=== PATIENT | female | born 1940 | race Caucasian/White ===

== ENCOUNTER 2021-10-07 10:02 | Emergency (ER) | payer MEDICARE, SELFPAY ==
--- NOTE | 2021-10-07 10:10 | ED.CHESTPAIN ---
HPI - Chest Pain General Chief Complaint: Upper Respiratory Infection Stated Complaint: cough, burning chest pain Time Seen by Provider: 10/07/21 10:10 Source: patient Mode of arrival: ambulatory Limitations: no limitations History of Present Illness HPI narrative: Saniya Plummer is a 81 yo female with a PMH of Related Data Home Medications Medication Instructions Recorded Confirmed amlodipine 5 mg PO DAILY 10/07/21 10/07/21 atorvastatin 20 mg PO DAILY 10/07/21 10/07/21 losartan 100 mg PO DAILY 10/07/21 10/07/21 omeprazole 20 mg PO DAILY 10/07/21 10/07/21 Allergies Allergy/AdvReac Type Severity Reaction Status Date / Time clarithromycin Allergy Mild NAUSEA Unverified 09/15/08 11:41 Penicillins Allergy Mild Rash Unverified 09/15/08 11:41 Discharge Plan Discharge Prescriptions: No Action atorvastatin 20 mg tablet 20 mg PO DAILY RF: 0 amlodipine 5 mg tablet 5 mg PO DAILY RF: 0 omeprazole 20 mg capsule,delayed release(DR/EC) 20 mg PO DAILY RF: 0 losartan 100 mg tablet 100 mg PO DAILY RF: 0
[2021-10-07 10:13] VITALS: BP 138/75; PULSE 80; RESP 18; TEMP 36.2; O2SAT 100
--- NOTE | 2021-10-07 10:19 | ED.URI ---
HPI - URI/Sore Throat General Chief Complaint: Upper Respiratory Infection Stated Complaint: cough, burning chest pain Time Seen by Provider: 10/07/21 10:10 Source: patient Mode of arrival: ambulatory Limitations: no limitations History of Present Illness HPI Narrative: Saniya Plummer is a 81 yo female with PMH of HTN, high cholesterol, GERD, who [facility] with complaints of burning chest pain and cough. Son-in-law had strep and so she wanted to be tested states she has had recent days of symptoms of sinus fullness and mild sore throat for 2 days Related Data Home Medications Medication Instructions Recorded Confirmed amlodipine 5 mg PO DAILY 10/07/21 10/07/21 atorvastatin 20 mg PO DAILY 10/07/21 10/07/21 losartan 100 mg PO DAILY 10/07/21 10/07/21 omeprazole 20 mg PO DAILY 10/07/21 10/07/21 Allergies Allergy/AdvReac Type Severity Reaction Status Date / Time clarithromycin Allergy Mild NAUSEA Verified 10/07/21 10:24 Penicillins Allergy Mild Rash Verified 10/07/21 10:24 oxycodone [From OxyContin] AdvReac Intermediate Nausea and Verified 10/07/21 10:25 Vomiting Review of Systems Review of Systems: CONSTITUTIONAL: Denies fever, chills, sweats. Subjective fever EYES: Denies visual changes, redness, discharge. ENT: Denies rhinorrhea, has congestion, has sore throat, otalgia. CARDIOVASCULAR: Denies chest pain, palpitations, edema. RESPIRATORY: Denies dyspnea, wheezing, cough GASTROINTESTINAL: Denies abdominal pain, nausea, vomiting, diarrhea. GENITOURINARY: Denies dysuria, hematuria, abnormal discharge SKIN: Denies rash or itching. NEUROLOGIC: Denies numbness, or focal weakness. PSYCHIATRIC: Denies anxiety or depression. PMFSH Past Medical History Medical History GERD (gastroesophageal reflux disease) High cholesterol HTN (hypertension) Social History Social History (Updated 10/07/21 @ 10:47 by Shania Montes CNP) Smoking status: Former smoker Alcohol intake: current Comments At time of signature, I agree with nursing past medical, surgical, social and family history. There is no relevant family history pertinent to the presenting complaint. Exam Narrative: GENERAL: This is a well-nourished, well-developed patient, in mild distress. HEAD: normocephalic, atraumatic. EYES: PERRL. Sclera clear/white. Vision is grossly intact. EARS: External ears normal, auditory canals clear and without drainage, TMs normal without perforation. Hearing grossly intact. NOSE: External nose normal without nasal discharge, nares without redness, no rhinorrhea. THROAT: Mucous membranes moist, posterior pharynx mild erythema, no exudate NECK: Neck supple, non-tender CARDIOVASCULAR: Regular rate and rhythm without murmurs, gallops, or rubs. RESPIRATORY: Clear to auscultation. Breath sounds equal bilaterally. No wheezes, rales, or rhonchi. GASTROINTESTINAL: Abdomen soft, non-tender, SKIN: warm, intact with no suspicious lesions or rash, good texture and turgor. NEURO: awake, alert, and oriented to person, place and time. There were no obvious focal neurologic abnormalities. Steady gait EXTREMITIES: Normal range of motion. BACK: Nontender without deformity Course Course Emergency Course: Patient here with mild sore throat and some sinus congestion subjective fever very mild cough Strep negative Flu negative Patient wants an antibiotic, will give Zithromax Level of Care: Express Care Visit Vital Signs Vital signs: Vital Signs Temperature 97.1 F L 10/07/21 10:13 Pulse Rate 80 10/07/21 10:13 Respiratory Rate 18 10/07/21 10:13 Blood Pressure 138/75 10/07/21 10:13 Pulse Oximetry 100 10/07/21 10:13 Temperature 97.1 F L 10/07/21 10:13 Pulse Rate 80 10/07/21 10:13 Respiratory Rate 18 10/07/21 10:13 Blood Pressure 138/75 10/07/21 10:13 Pulse Oximetry 100 10/07/21 10:13 MDM - URI/Sore Throat Differential Diagnosis
== END 2021-10-07 10:59 | disposition home or self-care (01) ==
PROVIDERS: Emergency Provider Nurse Practitioner; PCP Family Medicine
DX: B34.9 Viral infection, unspecified (principal); J02.9 Acute pharyngitis, unspecified; I10 Essential (primary) hypertension; Z87.891 Personal history of nicotine dependence
CPT/HCPCS: 87081; 87804; 87880; 99213; G0463

== ENCOUNTER 2023-12-30 15:20 | Emergency (ER) | payer MEDICARE, SELFPAY ==
[2023-12-30 15:34] VITALS: BP 142/54; PULSE 72; RESP 18; TEMP 36.6; O2SAT 98
--- NOTE | 2023-12-30 16:03 | ED.EPISTAXIS ---
HPI - Epistaxis General Chief complaint: Epistaxis Stated complaint: nose bleeds 2 months Time Seen by Provider: 12/30/23 15:50 Source: patient, RN notes reviewed and old records reviewed Mode of arrival: ambulatory Limitations: no limitations History of Present Illness HPI Narrative: patient presents with complaints of intermittent bleeding from the right nostril for approximately 2 months. She reports over the past week the bleeding has become more frequent and she has a raw sensation to the right nostril up into the right side of the forehead. She denies any fever, chills, sweats. She does follow with ENT regularly, next appointment January 28, 2024. She denies any injury or trauma. She voices no other complaints at this time. Related Data Home Medications Medication Instructions Recorded Confirmed amlodipine 5 mg tablet 5 mg PO DAILY 10/07/21 10/07/21 atorvastatin 20 mg tablet 20 mg PO DAILY 10/07/21 10/07/21 losartan 100 mg tablet 100 mg PO DAILY 10/07/21 10/07/21 omeprazole 20 mg capsule,delayed 20 mg PO DAILY 10/07/21 10/07/21 release famotidine 20 mg tablet mg 12/30/23 Allergies Allergy/AdvReac Type Severity Reaction Status Date / Time clarithromycin Allergy Mild NAUSEA Verified 12/30/23 15:54 Penicillins Allergy Mild Rash Verified 12/30/23 15:54 oxycodone [From OxyContin] AdvReac Intermediate Nausea and Verified 12/30/23 15:54 Vomiting Review of Systems Review of Systems: All systems reviewed & are unremarkable except as noted in HPI and below Constitutional: Constitutional: Reports no additional constitutional complaints ENT: Reports system reviewed and no additional complaints, except as documented, Reports epistaxis and Reports nasal discharge Cardiovascular: Cardiovascular: Reports no additional cardiovascular complaints Respiratory: Respiratory: Reports no additional respiratory complaints Gastrointestinal: Gastrointestinal: Reports no additional gastrointestinal complaints Allergic/Immunologic: Allergic/Immunologic: Reports as per HPI [facility] Past Medical History Medical History GERD (gastroesophageal reflux disease) High cholesterol HTN (hypertension) Family History Family History Father Hypertension Carcinoma of colon Malignant neoplasm of prostate Family history of coronary artery disease Mother Hypertension Family history of diabetes mellitus in first degree relative Family history of coronary artery disease Grandparent Cerebrovascular accident Social History Social History Smoking status: Former smoker Alcohol intake: current Exam Const: General: cooperative, no acute distress, alert and awake Orientation/consciousness: oriented to person, oriented to place and oriented to time HENMT: Head: normal to inspection Ears: TM's normal bilaterally Face/Nose/Sinus: Abnormal mucous membranes and turbinates present boggy on the right and erythematous on the right and Abnormal nasal septum present other (right sided swelling) Face and sinus: sinus tenderness frontal Mouth: Yes moist mucous membranes Throat: posterior oropharynx abnormal erythema and postnasal drainage Neck: Lymphatic: no lymphadenopathy noted Resp: Effort & Inspection: normal respiratory effort and able to speak in complete sentences Auscultation: clear to auscultation bilaterally, no crackles, no rales, no rhonchi and no wheezes Cardio: Palpation: normal PMI Rate: regular rate Rhythm: regular rhythm Heart sounds: S1 normal heart sound present and S2 normal heart sound present Neuro: General: oriented to person, oriented to place and oriented to time Cranial nerves: Yes CN's II-XII intact bilaterally Psych: Appearance: grossly normal Thought process: Normal thought process present Insight: Good insight present (Psych) Judgeme
== END 2023-12-30 16:13 | disposition home or self-care (01) ==
PROVIDERS: Emergency Provider Nurse Practitioner Family
DX: J01.10 Acute frontal sinusitis, unspecified (principal); Z87.891 Personal history of nicotine dependence; K21.9 Gastro-esophageal reflux disease without esophagitis; E78.00 Pure hypercholesterolemia, unspecified; I10 Essential (primary) hypertension
CPT/HCPCS: 99213; G0463

== ENCOUNTER → 2024-03-31 14:05 | Emergency (ER) | payer MEDICARE, SELFPAY | END | disposition left against medical advice (07) | LOC: ANHED 04-01 05:54 | DX: Z53.21 Procedure and treatment not carried out due to patient leaving prior to being seen by health care provider (principal) | CPT/HCPCS: 99199 ==

== ENCOUNTER 2024-03-31 14:17 | Emergency (ER) | payer MEDICARE, SELFPAY ==
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
--- NOTE | ~2024-03-31 | CT_ITS ---
EXAMINATION: CT abdomen pelvis w con DATE: 03/31/2024 19:36 INDICATION: mass/cyst? in upper abdomen TECHNIQUE: Computed tomography (CT) of the abdomen and pelvis was performed with 100 mL Omnipaque-350 intravenous contrast. Automated exposure control and iterative reconstruction technique were employe d. The dose-length product was 955.46 mGy-cm. COMPARISON: CT thoracic lumbar spine same date. FINDINGS: Lower thorax: Coronary artery calcifications. Liver: Multiple simple cysts measuring up to 12.6 cm in the left lobe. Multiple additional smaller parks bcentimeter hypodensities that are too small to characterize but also likely represent cysts or heman giomas. Biliary/Gallbladder: Gallbladder is normal. No bile duct dilation. Pancreas: No mass or duct dilation. Spleen: Normal. Adrenals:No mass. Kidneys: No suspicious mass, obstructing stone, or hydronephrosis. GI tract: No small or large bowel dilation. Appendix not confidently visualized. Diverticulosis witho ut diverticulitis. Mesentery/Peritoneum: No ascites, mass, or free air. Retroperitoneum: No mass. Pelvis: Normal urinary bladder and uterus. Atrophic ovaries.. Soft Tissues: Soft tissues and body wall unremarkable. Bones: No acute osseous finding. IMPRESSION: The cystic lesion detected in the prior CT of the thoracic and lumbar spine corresponds to a 12.6 cm simple liver cyst. No acute abdominopelvic process detected Reviewed, dictated and finalized at location K. IMPRESSION: The cystic lesion detected in the prior CT of the thoracic and lumbar spine cor responds to a 12.6 cm simple liver cyst. No acute abdominopelvic process detected
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
[2024-03-31 14:28] VITALS: BP 146/60; PULSE 73; RESP 18; TEMP 36.7; O2SAT 98
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
[2024-03-31 19:04] LABS: Basophils Absolute Auto 0.1 K/mm3 (0.0-0.1); Basophils Percent Auto 0.5 % (0.2-1.2); Eosinophils Absolute Auto 0.3 K/mm3 (0-0.3); Eosinophils Percent Auto 2.6 % (0-4.4); Hematocrit 40.2 % (37.0-47.0); Immature Granulocyte Absolute 0.04 K/mm3 (0.00-0.031); Immature Granulocyte Percent A 0.4 % (0-0.5); Lymphocytes Absolute Auto 2.99 K/mm3 (0.9-3.2); Lymphocytes Percent Auto 30.3 % (18.3-44.2); Mean Corpuscular HGB Conc 32.3 g/dl (32-36); Mean Corpuscular Hemoglobin 30.9 pg (26-34); Mean Corpuscular Volume 95.5 fl (80-100); Mean Platelet Volume 9.4 fl (7.4-10.4); Monocytes Absolute Auto 0.8 K/mm3 (0.1-0.6); Neutrophils Absolute Auto 5.7 K/mm3 (1.3-6.7); Neutrophils Percent Auto 58.2 % (45.5-73.1); Platelet Count Result 336 k/mm3 (150-375); Red Blood Count 4.21 M/mm3 (4.2-5.4); Red Cell Distribution Width 13.1 % (11.5-14.5); White Blood Count 9.9 K/mm3 (4.5-10.0)
[2024-03-31 19:18] LABS: Alanine Aminotransferase 28 U/L (6-35); Albumin Level 4.2 g/dL (3.5-5.1); Alkaline Phosphatase 111 U/L (38-126); Anion Gap 8 mmol/L (4-12); Aspartate Amino Transferase 40 U/L (14-36); Bilirubin,Total 0.4 mg/dL (0.2-1.3); Blood Urea Nitrogen 16 mg/dL (7-17); Carbon Dioxide 28 mmol/L (22-30); Chloride 104 mmol/L (98-107); Estimated CRCL calculation 50 ml/min; Estimated Glomerular Filt Rate 60; Glucose 90 mg/dL (65-110); Potassium 3.8 mmol/L (3.4-5.0); Sodium 140 mmol/L (137-145)
[2024-03-31 20:10] VITALS: BP 150/70; PULSE 73; RESP 18; O2SAT 98
[2024-03-31 20:34] VITALS: BP 152/73; PULSE 82; RESP 18; O2SAT 97
== END 2024-03-31 20:35 | disposition home or self-care (01) ==
PROVIDERS: Emergency Provider Physician Assistant
DX: S16.1XXA Strain of muscle, fascia and tendon at neck level, initial encounter (principal); K76.89 Other specified diseases of liver; I10 Essential (primary) hypertension; E78.00 Pure hypercholesterolemia, unspecified; K21.9 Gastro-esophageal reflux disease without esophagitis; Z96.611 Presence of right artificial shoulder joint; Z87.891 Personal history of nicotine dependence; V43.62XA Car passenger injured in collision with other type car in traffic accident, initial encounter
CPT/HCPCS: 36415; 72125; 72128; 72131; 73030; 74177; 80053; 85025; 99284; Q9967

== ENCOUNTER 2024-12-13 07:15 | Emergency (ER) | payer MEDICARE, SELFPAY ==
[2024-12-13] VITALS (20 sets, daily range): BP systolic 82–152; BP diastolic 34–108; PULSE 64–138; RESP 10–34; TEMP 36.4; O2SAT 95–100
--- NOTE | ~2024-12-13 | XR_ITS ---
Portable chest x-ray Comparison: 01/25/2014 Clinical History: Palpitations Findings: Lungs are clear, without focal consolidation or pleural effusion. Cardiomediastinal silho uette is stable. 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 Impression: Clear lungs. Degenerative changes and loose body at the left shoulder, as detailed above. Reviewed, dictated and finalized at location M. Impression: Clear lungs. Degenerative changes and loose body at the left shoulder, as detailed above.
--- NOTE | 2024-12-13 07:17 | ECG_ITS ---
Test Date: 2024-12-13 07:23:48 Measurements Intervals [place] Rate: 118 P: 0 KS: 0 QRS: 20 QRSD: 87 T: 28 QT: 239 QTc: 335 Interpretive Statements ATRIAL FIBRILLATION WITH RAPID VENTRICULAR RESPONSE NONSPECIFIC ST & T-WAVE ABNORMALITY ABNORMAL ECG Electronically Signed On 12-13-2024 11:37:06 CDT by Anjel Esteves M.D.
--- OUTSIDE RECORDS SUMMARY | 2024-12-13 07:17 | XMS_ITS | Clinical Summary ---
Author Organization [facility] Address [address] [place] [id number] Care Team Providers Care Choral Director Name Role Phone Sesar Toth MD Primary Care Provider [phone] Social History Tobacco Use Types Packs/Day Years Used Date Smoking Tobacco: Never Assessed Comments Unknown Sex and Gender Information Value Date Recorded Sex Assigned at Not on file Legal Sex Female 2:56 PM CDT Gender Identity Not on file Sexual Orientation Not on file Plan of Treatment Health Maintenance Due Date Last Done Comments Annual Medicare Wellness Visit 09/28/2007 Dexa Scan (General) 09/28/2007 RSV Immunization or 60+ Years (1 - 1-dose 75+ series) 2017 COVID-19 Vaccine (2023-2 5 season) 2024 DTaP, Tdap and Td Vaccines ( 4 - Td or Tdap) 01/24/2030 01/25/2020, 09/19/2016, 09/19/2016 Pneumococcal Vaccine: 50+ Years Completed 01/30/2018, 01/21/2018, 12/12/2015 Zoster Vaccines Completed 09/17/2018, 06/24/2018 Meningococcal B Vaccine Aged Out No l onger eligible based on patient's age to complete this topic Meningococcal Vaccine Aged Out No wilmer nina eligible based on patient's age to complete this topic RSV Immunizations Under 20 Months Aged Out No longer eligible b ased on patient's age to complete this topic Insurance MED REPLACE [facility] MEDICARE Care Teams Choral Director Relationship Specialty Start Date End Date Sesar Toth MD [address] [place] [id number] PCP - General FAMILY PRACTICE 09/19/21
--- OUTSIDE RECORDS SUMMARY | 2024-12-13 07:17 | XMS_ITS | Continuity of Care Document ---
Author Organization [facility] Address [address] [place] [address] Phone Care Team Providers Care Vp Medical Name Role Phone Jd Laguerre DO Unavailable Unavailable Advance Directives Directive Yes / No Effective Date File Name No Information Encounters Encounter Description Practice Location Reason(s) For Visit Diagnoses Date Provider Providers Copied on Encounter [facility], [address], [place], [place], [id number], [place] tel:[phone] [facility] ([facility]) No Information [facility]. [address] [place], [address], [place]. tel: [phone] Family History Family Member Type Diagnosis Age At Onset No Information Payers Payer name Insurance type Covered alliance party ID Authoriza tion(s) No Information Social History Type Description Quantity Date Captured Comments Sex Female Smoking Status No Information Chief Complaint And Reason For Visit No Information Reason For Referral Reason For Referral No Information History Of Present Illness Encounter Date Complaint History Of Prese nt Illness No Information Functional Status Date Functional Assessmen t No Information Instructions Date Instruction Additional Infor mation No Information Assessments Type Assessment Date No Information Patient Care Teams Name Effective Dates (start - stop) Status Members No Information
--- OUTSIDE RECORDS SUMMARY | 2024-12-13 07:17 | XMS_ITS | Clinical Summary ---
Author Organization [address] Address [address] [place] [phone] Care Team Providers Care Electrical Engineering Draftsperson Name Role Phone Sesar Toth MD Primary Care Provider [phone] Allergies Active Allergy Reactions Criticality Noted Date Comments Penicillins Rash,Vomiting Medium 10/24/2015 Medications amLODIPine (NORVASC) 5 mg tablet 09/14/19 25 Active aspirin 81 mg enteric coated tablet Take 1 tablet (81 mg total) by mouth daily Active atorvastatin (LIPITOR) 40 mg tablet 09/14/19 25 Active ezetimibe (ZETIA) 10 mg tablet 09/14/19 25 Active losartan (COZAAR) 100 mg tablet 09/14/19 25 Active omeprazole (PriLOSEC) 40 mg capsule Take 1 capsule (40 mg total) by mouth daily Active simvastatin (ZOCOR) 40 mg tablet Take 1 tablet (40 mg total) by mouth daily Active ofloxacin (OCUFLOX) 0.3 % ophthalmic solutionIndication s:Bacterial Conjunctivitis Administer 2 drops into the right eye every 4 (four) hours for 7 days 5 mL 12/06/19 25 025 Active Problems No known active problems Encounters Date Type Department Care Team Description 12/05/2024 9:45 AM CDT Office Visit [facility] at [address] [address] Karley Lackey NP Bacterial conjunctivitis of right eye (Primary Dx) from Last 3 Months Immunizations Immunization Administration Dates Next Due Influenza, Trivalent, High D ose, Split, Preservative Free, Intramuscular 01/30/2018,01/26/2015 Influenza, Trivalent, IM (MDV) 02/10/2011 Pneumococcal Conjugate PCV 13 01/30/2018 Tdap 09/19/2016 Social History Tobacco Use Types Packs/Day Years Used Date Smoking Tobacco: Never Assessed Comments Unknown Sex and Gender Information Value Date Recorded Sex Assigned at Not on file 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 Gender Identity Not on file Sexual Orientation Not on file Obstetrics History Last Filed Vital Signs Vital Sign Reading Time Taken Comments Blood Pressure 141/74 12/05/2024 8:54 AM CDT Pulse 67 12/05/2024 8:54 AM CDT Temperature 36.6 C (97.9 F) 12/05/2024 8:54 AM CDT Respiratory Rate 16 12/05/2024 8:54 AM CDT Oxygen Saturation 100% 12/05/2024 8:54 AM CDT Inhaled Oxygen Concentration - - Weight 92.1 kg (203 lb) 12/05/2024 8:54 AM CDT Height - - Body Mass Index - - Plan of Treatment Health Maintenance Due Date Last Done Comments Depression Screening 1942 Fall Risk Assessment 1942 Osteoporosis Screening-Bone Density Scan 1942 Hepatitis B Screening 1960 Zoster Vaccine (1 of 2) 1992 Well Visit 65+ 09/28/2007 Pneumococcal vaccine 65+ (2 of 2 - PPSV23) 01/30/2019 01/30/2018 Influenza Vaccine (#1) 2025 8, 01/26/2015, 02/10/2011 DTaP/Tdap/Td Vaccine (2 - Td or Tdap) 09/19/2026 Insurance [employer] MEDICARE Care Teams Electrical Engineering Draftsperson Relationship Specialty Start Date End Date Sesar Toth MD [address] [place] [address] PCP - General Family Medicine 12/05/24
--- OUTSIDE RECORDS SUMMARY | 2024-12-13 07:17 | XMS_ITS | Referral Summary ---
Author Organization [address] Address [address] [place] [address] Care Team Providers Care Press Set Up Name Role Phone Sesar Toth MD Primary Care Provider [phone] Encounters Date Type Department Care Team Description 12/05/2024 9:45 AM CDT Office Visit [facility] at [address] [address] Karley Lackey, JENNI Bacterial conjunctivitis of right eye (Primary Dx) from Last 3 Months Allergies Active Allergy Reactions Criticality Noted Date [...] 025 Active Problems No known active problems Immunizations Immunization Administration Dates Next Due Influenza, Trivalent, High D ose, Split, Preservative Free, Intramuscular 01/30/2018,01/26/2015 Influenza, Trivalent, IM (MDV) 02/10/2011 Pneumococcal Conjugate PCV 13 01/30/2018 Tdap 09/19/2016 Social History Tobacco Use Types Packs/Day Years Used Date Smoking Tobacco: Never Assessed Comments Unknown Sex and Gender Information Value Date Recorded Sex Assigned at Not on file 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
--- OUTSIDE RECORDS SUMMARY | 2024-12-13 07:17 | XMS_ITS | Clinical Summary ---
Author Organization [facility] Address [address] [place] [address] Phone Care Team Providers Care Director Of Critical Care Name Role Phone Sesar Toth MD Primary Care Provider [phone] Allergies Active Allergy Reactions Criticality Noted Date Comments Penicillins Rash,Vomiting 10/24/2015 Medications polyethylene glycol (MIRALAX) Powder Mix the entire bottle with 64 oz of a clear liquid. Use as directed by the office for colonoscopy prep. 255 g 0 6 Active simvastatin (ZOCOR) 40 MG Tablet Take 40 mg by mouth daily. Active omeprazole (PRILOSEC) 40 MG CAPSULE DELAYED RELEASE Take 40 mg by mouth daily. Active aspirin EC 81 MG Tablet Delayed Response Take 81 mg by mouth daily. Active Calcium Citrate-Vitamin D (CALCIUM CITRATE + D PO) Take 2 Tabs by mouth 2 times daily. Active Cyanocobalamin (VITAMIN B 12 PO) Take 1,000 mcg by mouth daily. Active Multiple Vitamin (MULTI-VITAMIN) Tablet Take 1 Tab by mouth daily. Active Family History Medical History Relation Name Comments Colon Cancer Father 70's Congestive Heart Failure Father Heart Attack Father Melanoma Father Osteoarthritis Father Pacemaker Father Squamous Cell Carcinoma Father Congestive Heart Failure Mother Diabetes Mother Heart Attack Mother Osteoarthritis Mother Pacemaker Mother Relation Name Status Comments Father Mother Social History Tobacco Use Types Packs/Day Years Used Date Smoking Tobacco: Former Cigarettes Q uit: 10/24/1979 Smokeless Tobacco: Never Alcohol Use Standard Drinks/Week Comments Yes 0 (1 standard drink = 0.6 oz pur e alcohol) glass of wine nightly Comments Unknown Sex and Gender Information Value Date Recorded Sex Assigned at Not on file Legal Sex Female 10:38 PM CDT Gender Identity Not on file Sexual Orientation Not on file 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 Not on file Not on file Not on file Last Filed Vital Signs Vital Sign Reading Time Taken Comments Blood Pressure 127/53 10/26/2015 10:23 AM CDT Pulse - - Temperature 36 C (96.8 F) 10/26/2015 10:23 AM CDT Respiratory Rate 19 10/26/2015 10:23 AM CDT Oxygen Saturation 96% 10/26/2015 10:23 AM CDT Inhaled Oxygen Concentration - - Weight 90.7 kg (200 lb) 10/26/2015 9:00 AM CDT Height 172.7 cm (5' 8) 10/26/2015 9:00 AM CDT Body Mass Index 30.41 10/26/2015 9:00 AM CDT Plan of Treatment Health Maintenance Due Date Last Done Comments DEXA Bone Density 1940 Hepatitis C Virus (HCV) Screening 1940 TdaP Immunization 1942 Pneumococcal Immunization (5 0+ years) (1 of 1 - PCV) 1992 Zoster Immunization (1 of 2) 1992 Respiratory Syncytial Virus (RSV) Immunization (Adult) (1 - 1-dose 75+ series) 2017 Influenza Immunization (#1) 2024 SARS-COV-2 Immunization ( - 2023- season) 2024 Hepatitis B Immunization Aged Out No longer eligible based on patient's age to complete this topic Meningococcal Immunization (ACWY) Aged Out No longer eligible based on patient's age to complete this topic Rotavirus Immunization Aged Out No lo nger eligible based on patient's age to complete this topic Care Teams Director Of Critical Care Relationship Specialty Start Date End Date Sesar Toth MD [address] [place] [address] PCP - General Family Medicine 10/26/15
[2024-12-13] MEDS: ASPIRIN 81 MG CHEWABLE TABLET 324 MG PO (07:31)
--- NOTE | 2024-12-13 07:33 | ED_ITS ---
HPI - Arrhythmia/Palpitations General Chief Complaint: Arrhythmia/Palpitations Stated Complaint: heart is racing Time Seen by Provider: 12/13/24 07:18 History of Present Illness HPI narrative: Patient is an 84-year-old female who presents ER with racing of the heart. She can feel her heart beating fast and appearing speeds. She has exertional shortness of breath. She wears a watch that woke her up from sleep alerting her that her heart rate was over 140 beats per minute. Patient has no history of atrial fibrillation or arrhythmia. She has no chest pain. Patient typically gets her care in [place] but lives down here in the summer to help care for her grandchildren. No fevers or chills or sweats. Related Data Home Medications ?Medication ?Instructions ?Recorded ?Confirmed ?Last Taken ?Type atorvastatin 20 mg tablet 20 mg PO DAILY 10/07/21 12/13/24 12/12/24 History losartan 100 mg tablet 100 mg PO DAILY 10/07/21 12/13/24 Unknown History omeprazole 20 mg capsule,delayed 20 mg PO DAILY 10/07/21 12/13/24 Unknown History release aspirin 81 mg tablet,delayed 81 mg PO DAILY 12/13/24 12/13/24 12/12/24 History release (Adult Low Dose Aspirin) ezetimibe 10 mg tablet 10 mg PO DAILY 12/13/24 12/13/24 Unknown History Allergies Allergy/AdvReac Type Severity Reaction Status Date / Time Penicillins Allergy Mild Rash Verified 12/13/24 07:29 oxycodone (From OxyContin) AdvReac Intermediate Nausea and Verified 12/13/24 07:29 Vomiting Review of Systems 2 Review of Systems: All systems reviewed & are unremarkable except as noted in HPI and below Constitutional: Constitutional: Reports no additional constitutional complaints Cardiovascular: Cardiovascular: Reports no additional cardiovascular complaints Respiratory: Respiratory: Reports no additional respiratory complaints Genitourinary: Genitourinary: Reports no additional female genitourinary complaints Neurologic: Reports system reviewed and no additional complaints, except as documented PMF Past Medical History Medical History GERD (gastroesophageal reflux disease) High cholesterol HTN (hypertension) Family History Family History Father Hypertension Carcinoma of colon Malignant neoplasm of prostate Family history of coronary artery disease Mother Hypertension Family history of diabetes mellitus in first degree relative Family history of coronary artery disease Grandparent Cerebrovascular accident Social History Social History Smoking status: Former smoker Alcohol intake: current Exam 2 Narrative: GENERAL: Well-appearing, well-nourished, and in no acute distress. HEAD: Normocephalic, atraumatic. ENT: Mucous membranes moist. CHEST: Clear to auscultation. No respiratory distress. HEART: Irregularly irregular rate and rhythm that is tachycardic. Normal peripheral pulses. ABDOMEN: Soft, nontender, nondistended. EXTREMITIES: Normal range of motion. No edema. SKIN: Warm, dry, no rash. NEURO: Alert and oriented x3. PSYCH: Normal mood and affect. Course Course Emergency Course: After diltiazem 10 mg patient converted from AFib with RVR to a sinus rhythm. EKG repeated. Discussed with Cardiology. Will start patient on Eliquis 5 mg twice a day and then also start her on metoprolol XL 25 mg that she can start tomorrow. Patient is to stop her amlodipine. She may follow-up with Cardiology here or she may return to [place] and see her schedule planning manager there. Patient educated on stroke risk with atrial fibrillation discussed importance of anticoagulation. 1st does of eliquis here. Vital Signs Vital signs: Vital Signs Temperature 97.6 F 12/13/24 07:19 Pulse Rate 132 H 12/13/24 07:19 Respiratory Rate 12 12/13/24 07:19 Blood Pressure 150/92 H 12/13/24 07:19 Pulse Oximetry 100 12/13/24 07:19 Oxygen Delivery Room Air 12/13/24 07:19 Temperature 97.6 F 12/13/24 07:19 Pulse Rate 65 12/13/24 08:11 Respiratory Rate 12 12/13/24 08:02 Blood Pressure 116/67 12/13/24 08:01 Pulse Oximetry 96 12/13/24 08:02 Oxygen Delivery Room Air 12/13/24 07:55 MDM - Arrhythmia/Palpitations Lab Data 12/13/24 07:26 12/13/24 07:26 Labs: Lab Results 12/13/24 Range/Units 07:26 WBC 8.7 (4.5-10.0) K/mm3 RBC 4.80 (4.2-5.4) M/mm3 Hgb 14.4 (12.0-15.0) g/dL Hct 46.1 (37.0-47.0) % MCV 96.0 (80-100) fl MCH 30.0 (26-34) pg MCHC 31.2 L (32-36) g/dl RDW 13.4 (11.5-14.5) % Plt Count 343 (150-375) k/mm3 MPV 9.4 (7.4-10.4) fl Immature Gran % (Auto) 0.7 H (0-0.5) % Neut % (Auto) 40.6 L (45.5-73.1) % Lymph % (Auto) 44.3 H (18.3-44.2) % [place] % (Auto) 10.7 H (2.6-8.5) % Eos % (Auto) 3.1 (0-4.4) % Baso % (Auto) 0.6 (0.2-1.2) % Lymph # (Auto) 3.84 H (0.9-3.2) K/mm3 [place] # (Auto) 0.9 H (0.1-0.6) K/mm3 Eos # (Auto) 0.3 (0-0.3) K/mm3 Baso # (Auto) 0.1 (0.0-0.1) K/mm3 Abs Immat Gran (auto) 0.06 H (0.00-0.031) K/mm3 Absolute Neuts (auto) 3.5 (1.3-6.7) K/mm3 Absolute Nucleated RBC 0.000 (0.0-0.012) K/mm3 Nucleated RBC % 0.0 (0.0-0.2) % PT 12.4 (11.1-14.7) Seconds INR 0.9 APTT 21.7 L (22.3-36.8) Seconds Sodium 142 (137-145) mmol/L Potassium 3.8 (3.4-5.0) mmol/L Chloride 106 (98-107) mmol/L Carbon Dioxide 26 (22-30) mmol/L Anion Gap 10 (4-12) mmol/L BUN 17 (7-17) mg/dL Creatinine 0.77 (0.7-1.0) mg/dL Estim Creat Clear Calc 57 ml/min Estimated GFR > 60 (59 - ) Glucose 107 (65-110) mg/dL Calcium 9.4 (8.4-10.2) mg/dL Total Bilirubin 0.6 (0.2-1.3) mg/dL AST 40 H (14-36) U/L ALT 28 (6-35) U/L Alkaline Phosphatase 94 (38-126) U/L Troponin I < 0.012 (0.000-0.034) ng/mL Total Protein 7.4 (6.3-8.2) g/dL Albumin 4.2 (3.5-5.1) g/dL Lipase 91 (23-300) U/L Imaging Data Radiologist's impression: ITS Impressions Chest X-Ray 12/13/24 07:46 Impression: Clear lungs. Degenerative changes and loose body at the left shoulder, as detailed above. ECG Data EKG #1: ECG completion date: 12/13/24 ECG completion time: 07:23 EKG Interpretation: tachycardia (118), atrial fibrillation, non-specific ST changes, normal QT and NL axis EKG #2: ECG completion date: 12/13/24 ECG completion time: 08:10 EKG Interpretation: normal rate (65), sinus rhythm, normal QRS and normal QT Discharge Plan Discharge Clinical Impression: Atrial fibrillation Patient Disposition: Home Condition: Stable Instructions: Antibiotic Form, A-fib (Atrial Fibrillation) (ED) Additional Instructions: Please return to the emergency department if you develop severe and persistent chest pain, difficulty breathing, dizziness, leg swelling or if you are coughing up blood as these can be signs of a medical emergency. Please call your doctor for a follow up appointment to determine the need for further testing. You have received your 1st dose of Eliquis in the ER. Take your next dose tonight. Your to start your metoprolol tomorrow. Discontinue your amlodipine. Patient Language: [place]de[place] Prescriptions: New Eliquis 5 mg tablet 5 mg PO BID Qty: 60 0RF metoprolol succinate 25 mg tablet extended release 24 hr 25 mg PO DAILY Qty: 30 0RF Discontinued amlodipine 5 mg tablet 5 mg PO DAILY No Action atorvastatin 20 mg tablet 20 mg PO DAILY omeprazole 20 mg capsule,delayed release(DR/EC) 20 mg PO DAILY losartan 100 mg tablet 100 mg PO DAILY ezetimibe 10 mg tablet 10 mg PO DAILY aspirin [Adult Low Dose Aspirin] 81 mg tablet,delayed release (DR/EC) 81 mg PO DAILY Follow-up/Referrals: Anjel Esteves MD [Physician] - 1 Week PHYSICIAN NOT ON STAFF,NONSTAFF [Non-Staff] -
[2024-12-13 07:43] LABS: Hematocrit 46.1 % (37.0-47.0); Hemoglobin 14.4 g/dL (12.0-15.0); Immature Granulocyte Percent A 0.7 % (0-0.5); Lymphocytes Absolute Auto 3.84 K/mm3 (0.9-3.2); Mean Corpuscular HGB Conc 31.2 g/dl (32-36); Mean Corpuscular Hemoglobin 30.0 pg (26-34); Mean Corpuscular Volume 96.0 fl (80-100); Nucleated Red Blood Cells Absolute Auto 0.000 K/mm3 (0.0-0.012); Nucleated Red Blood Cells Perc 0.0 % (0.0-0.2); Platelet Count Result 343 k/mm3 (150-375); Red Blood Count 4.80 M/mm3 (4.2-5.4); White Blood Count 8.7 K/mm3 (4.5-10.0)
--- OUTSIDE RECORDS SUMMARY | 2024-12-13 07:49 | XMS_ITS | Referral Summary ---
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
--- OUTSIDE RECORDS SUMMARY | 2024-12-13 07:49 | XMS_ITS | Clinical Summary ---
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
--- OUTSIDE RECORDS SUMMARY | 2024-12-13 07:49 | XMS_ITS | Continuity of Care Document ---
Author Organization [facility] Address [address] [place] [address] Phone Care Team Providers Care Corporate Services Manager Name Role Phone Jd Laguerre DO Unavailable Unavailable Advance Directives Directive Yes / No Effective Date File Name No Information Encounters Encounter Description Practice Location Reason(s) For Visit Diagnoses Date Provider Providers Copied on Encounter [facility], [address], [place], [place], [id number], [place] tel:[phone] [facility] No Information [facility]. [address] [place], [address], [place]. tel: [phone] Family History Family Member Type Diagnosis Age At Onset No Information Payers Payer name Insurance type Covered republican ID Authoriza tion(s) No Information Social History [...]
--- OUTSIDE RECORDS SUMMARY | 2024-12-13 07:49 | XMS_ITS | Clinical Summary ---
Author Organization [facility] Address [address] [place] [id number] Care Team Providers Care Merchandise Marker Name Role Phone Sesar Toth MD Primary Care Provider [phone] Social History Tobacco Use Types Packs/Day Years [...] to complete this topic Insurance MED REPLACE [facility] MEDICARE Care Teams Merchandise Marker Relationship Specialty Start Date End Date Sesar Toth MD [address] [place] [id number] PCP - General FAMILY PRACTICE 09/19/21
--- OUTSIDE RECORDS SUMMARY | 2024-12-13 07:49 | XMS_ITS | Clinical Summary ---
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
[2024-12-13 07:50] LABS: Alanine Aminotransferase 28 U/L (6-35); Albumin Level 4.2 g/dL (3.5-5.1); Alkaline Phosphatase 94 U/L (38-126); Anion Gap 10 mmol/L (4-12); Aspartate Amino Transferase 40 U/L (14-36); Bilirubin,Total 0.6 mg/dL (0.2-1.3); Blood Urea Nitrogen 17 mg/dL (7-17); Calcium 9.4 mg/dL (8.4-10.2); Carbon Dioxide 26 mmol/L (22-30); Chloride 106 mmol/L (98-107); Estimated CRCL calculation 57 ml/min; Estimated Glomerular Filt Rate > 60; Glucose 107 mg/dL (65-110); Lipase 91 U/L (23-300); Potassium 3.8 mmol/L (3.4-5.0); Sodium 142 mmol/L (137-145); Total Protein 7.4 g/dL (6.3-8.2)
[2024-12-13 07:51] LABS: INR 0.9; Prothrombin Time 12.4 Seconds (11.1-14.7)
[2024-12-13 07:52] LABS: Partial Thromboplastin Time 21.7 Seconds (22.3-36.8)
[2024-12-13 08:01] LABS: Troponin I < 0.012 ng/mL (0.000-0.034)
--- NOTE | 2024-12-13 08:08 | ECG_ITS ---
Test Date: 2024-12-13 08:10:02 Measurements Intervals Carney Rate: 65 P: 22 NM: 145 QRS: 8 QRSD: 90 T: 46 QT: 383 QTc: 398 Interpretive Statements SINUS RHYTHM WITH SINUS ARRHYTHMIA NORMAL ECG Compared to ECG 12/13/2024 07:23:48 Atrial fibrillation no longer present T-wave abnormality no longer present Electronically Signed On 12-13-2024 11:37:35 CDT by Anjel Esteves M.D.
[2024-12-13] MEDS: APIXABAN 5 MG TABLET PO (09:12)
== END 2024-12-13 09:21 | disposition home or self-care (01) ==
PROVIDERS: Emergency Provider Emergency Medicine
DX: I48.91 Unspecified atrial fibrillation (principal); I10 Essential (primary) hypertension; E78.00 Pure hypercholesterolemia, unspecified; K21.9 Gastro-esophageal reflux disease without esophagitis; Z87.891 Personal history of nicotine dependence; Z79.82 Long term (current) use of aspirin; Z79.899 Other long term (current) drug therapy; R94.31 Abnormal electrocardiogram [ECG] [EKG]
CPT/HCPCS: 36415; 71045; 80053; 83690; 84484; 85025; 85610; 85730; 93005; 96374; 99284; A9270; J1163